=== PATIENT | female | born 1945 | race Hispanic/Latino ===

== ENCOUNTER 2019-02-23 14:21 | Emergency (ER) | payer SELFPAY ==
[~2019-02-23] VITALS: Ht 152.4 cm; Wt 86.0 kg
[2019-02-23 17:15] VITALS: BP 126/80
== END 2019-02-23 17:15 | disposition home or self-care (01) | DRG 392 ==
LOC: ED 14:21
DX: K59.00 Constipation, unspecified (principal); I10 Essential (primary) hypertension